=== PATIENT | female | born 1950 | race Caucasian/White ===

== ENCOUNTER 2021-10-29 14:38 | Emergency (ER) | payer MEDICARE ==
[~2021-10-29] VITALS: Ht 167.6 cm; Wt 62.3 kg
[~2021-10-29 14:38] MED LIST: ATOR20TA66 PO; AZIT500T9 PO; BUPR-94 PO; CALC-1051 PO; CARV-50 PO; MELA10TA PO; NOR5T PO; OMEP1CAP2 PO
[2021-10-29 14:45] VITALS: BP 198/79
[2021-10-29] MEDS ORDERED: TETanus/Pertussis (Acell)/Diphther VAC/PF (Tdap-Adult) 0.5ml syringe IMVAC ONE (15:30)
== END 2021-10-29 15:46 | disposition home or self-care (01) ==
LOC: ER 14:39
DX: S81.812A Laceration without foreign body, left lower leg, initial encounter (principal); I10 Essential (primary) hypertension; Z72.89 Other problems related to lifestyle; Z88.8 Allergy status to other drugs, medicaments and biological substances; Z79.2 Long term (current) use of antibiotics; Z79.899 Other long term (current) drug therapy; W19.XXXA Unspecified fall, initial encounter; Z91.81 History of falling; Y93.89 Activity, other specified; Y92.89 Other specified places as the place of occurrence of the external cause; Y99.8 Other external cause status
CPT/HCPCS: 12001; 90471; 90715; 99284

== ENCOUNTER 2023-10-02 09:14 | Emergency (ER) | payer MEDICARE ==
[~2023-10-02] VITALS: Ht 167.6 cm; Wt 63.6 kg
[~2023-10-02 09:14] MED LIST changes: -MELA10TA PO; +MELATONIN10 MG PO
[2023-10-02 09:17] VITALS: BP 139/62; PULSE 67; RESP 16; TEMP 98; O2SAT 98
== END 2023-10-02 12:13 | disposition home or self-care (01) ==
LOC: ER 09:15
DX: S82.451A Displaced comminuted fracture of shaft of right fibula, initial encounter for closed fracture (principal); S92.351A Displaced fracture of fifth metatarsal bone, right foot, initial encounter for closed fracture; W18.30XA Fall on same level, unspecified, initial encounter; Y93.89 Activity, other specified; Y92.89 Other specified places as the place of occurrence of the external cause; Y99.8 Other external cause status; I10 Essential (primary) hypertension; Z88.8 Allergy status to other drugs, medicaments and biological substances
CPT/HCPCS: 29515; 73610; 73630; 99284; A6446; A6449

== ENCOUNTER 2024-02-12 10:34 | Emergency (ER) | payer MEDICARE ==
[~2024-02-12] VITALS: Ht 167.6 cm; Wt 65.5 kg
[2024-02-12] MEDS: acetaminophen 325mg tablet PO ONE (12:14)
[2024-02-12] MEDS: bacitracin 15gm ointment TP ONE (12:14)
[2024-02-12] MEDS: TETanus/Pertussis (Acell)/Diphther VAC/PF (Tdap-Adult) 0.5ml syringe IMVAC ONE (12:16)
[2024-02-12 15:11] VITALS: BP 176/88; PULSE 84; RESP 16; TEMP 98.6; O2SAT 95
== END 2024-02-12 15:14 | disposition home or self-care (01) ==
LOC: ER 10:35
DX: S06.0X0A Concussion without loss of consciousness, initial encounter (principal); S00.83XA Contusion of other part of head, initial encounter; M25.532 Pain in left wrist; I10 Essential (primary) hypertension; Z98.890 Other specified postprocedural states; Z72.89 Other problems related to lifestyle; Z88.8 Allergy status to other drugs, medicaments and biological substances; Z79.899 Other long term (current) drug therapy; Z79.2 Long term (current) use of antibiotics; W18.39XA Other fall on same level, initial encounter; Y93.89 Activity, other specified; Y92.89 Other specified places as the place of occurrence of the external cause; Y99.8 Other external cause status
CPT/HCPCS: 29125; 70450; 72125; 73110; 90715; 99285; G0008; L3908; 90471